=== PATIENT | male | born 1985 | race African-American/Black ===

== ENCOUNTER → 2019-03-01 | Outpatient (CLI) | payer BC ==
[2019-03-01 11:24] LABS: COLLECTION METHOD DRY COLLECTION; SPECIMEN CONTAINER POLYPROPYLENE CUP; SPERM MORPHOLOGY SENT TO REFERENC LAB
[2019-03-01 13:15] LABS: COLLECTION SITE ON-SITE; DAYS ABSTINENT 2 DAYS (2-7); ROUND CELL CONC. 1.5 X10^6/mL (<5.1); SA DILUTION CNT 1 392; SA DILUTION FACTOR 3; SA NONMOTILE COUNT1 688; SA NONMOTILE COUNT2 631; SA ROUND CELL COUNT1 14; SA ROUND CELL COUNT2 16; SEMEN TESTING TIME 1140
[2019-03-01 13:16] LABS: SA DILUTION CNT 2 385; SA SPERM MOTILE CONC 50.6 X10^6mL; SPERM CONCENTRATION 116.6 X10^6/mL (>12.0); SPERM PROGRESSION 3; TOTAL SPERM COUNT 338.1 X10^6 (>33.0)
== END ==
LOC: LAB 10:51
PROVIDERS: ATTEND Urology
DX: N46.9 Male infertility, unspecified (principal)
CPT/HCPCS: 89320

== ENCOUNTER → 2020-08-20 | Outpatient (CLI) | payer BC | LOC: OD 09:29 | PROVIDERS: ATTEND Otolaryngology | DX: J30.9 Allergic rhinitis, unspecified (principal) | CPT/HCPCS: 36415; 82785; 86003 ==